=== PATIENT | female | born 1950 | race Caucasian/White ===

== ENCOUNTER → 2019-04-27 15:06 | Outpatient (CLI) | payer OTHER, MEDICARE, SELFPAY | PROVIDERS: PCP Student in an Organized Health Care Education/Training Program; Visit Provider Student in an Organized Health Care Education/Training Program | DX: N95.8 Other specified menopausal and perimenopausal disorders (principal) | CPT/HCPCS: 77080 ==

== ENCOUNTER → 2020-11-08 15:46 | Outpatient (CLI) | payer MEDICARE, SELFPAY ==
[2020-11-08] MEDS: COVID-19 VACC, Ad26(JANSSEN)/PF 0.5 ML IM (15:55)
== END ==
PROVIDERS: PCP Student in an Organized Health Care Education/Training Program; Visit Provider Internal Medicine
DX: Z23 Encounter for immunization (principal)
CPT/HCPCS: 0031A; 91303

== ENCOUNTER → 2022-08-28 07:52 | Outpatient (CLI) | payer MEDICARE, OTHER, SELFPAY | PROVIDERS: PCP Student in an Organized Health Care Education/Training Program; Referring Provider Ophthalmology; Visit Provider Ophthalmology | DX: H16.102 Unspecified superficial keratitis, left eye (principal) | CPT/HCPCS: 87255 ==

== ENCOUNTER → 2022-12-25 11:18 | Outpatient (CLI) | payer MEDICARE, OTHER, SELFPAY ==
--- NOTE | 2022-12-25 11:22 | DI.RAD.S_ITS ---
PROCEDURE: XR LUMBAR SPINE 2-3V INDICATIONS: CHRONIC RT SIDE LOW BACK PAIN/RT SIDE SCIATICA TECHNIQUE: 3 views of the lumbar spine were acquired. COMPARISON: None. FINDINGS: Bones: 5 [id number] vertebrae are present. Anterolisthesis of L4 on L5 measuring 0.6 cm. Retrolisthesis of L3 on L4 measuring at 0.8 cm. Retrolisthesis of L2 on L3 measuring 0.6 cm. Minimal height loss at L5. Small vertebral body osteophytes. Endplate sclerosis. No suspicious bony lesions. Soft tissues: Overlying bowel gas pattern is normal. No suspicious soft tissue calcifications. IMPRESSION: Multilevel spondylolisthesis. [id number] degenerative change. Dictated by: Josef Campos M.D. on 12/25/2022 at 14:39 Approved by: Josef Campos M.D. on 12/25/2022 at 14:41
== END ==
PROVIDERS: PCP Student in an Organized Health Care Education/Training Program; Referring Provider Student in an Organized Health Care Education/Training Program; Visit Provider Student in an Organized Health Care Education/Training Program
DX: M47.816 Spondylosis without myelopathy or radiculopathy, lumbar region (principal); M43.16 Spondylolisthesis, lumbar region; M54.41 Lumbago with sciatica, right side; G89.29 Other chronic pain
CPT/HCPCS: 72100

== ENCOUNTER → 2024-07-06 14:40 | Outpatient (CLI) | payer MEDICARE, OTHER, SELFPAY ==
--- NOTE | 2024-07-06 | DI.RAD.S_ITS ---
PROCEDURE: XR KNEE LT 1TO2V INDICATIONS: FAMILY HX OF OSTEOPOROSIS/xray knees TECHNIQUE: 3 views of the knee were acquired. COMPARISON: [facility], , KNEE 3V RIGHT, 03/27/2017, 13:46. FINDINGS: Bones: The tibial tuberosity is mildly enlarged which could indicate old Charles-Schlatter's disease. Joints: There is mild degenerative change patellofemoral tibiofemoral joints.. Soft tissues: Scattered small soft tissue nodules are seen in the pretibial subcutaneous region as previously seen. Presume there skin lesions. IMPRESSION: Norm mild degeneration. Probable old Charles-Schlatter's disease. Suspect benign subcutaneous skin lesions in the pretibial area no change from 2016 Dictated by: Bobby Lynn M.D. on 07/07/2024 at 10:13 Approved by: Bobby Lynn M.D. on 07/07/2024 at 10:14
--- NOTE | 2024-07-06 | DI.RAD.S_ITS ---
PROCEDURE: XR KNEE RT 1TO2V INDICATIONS: FAMILY HX OF OSTEOPOROSIS/xray knees TECHNIQUE: 3 views of the knee were acquired. COMPARISON: [facility], , KNEE 3V RIGHT, 03/27/2017, 13:46. FINDINGS: Bones: There are no osseous abnormalities. Patella Desiree noted. Joints: Moderate patellofemoral and medial tibial femoral degenerative change appreciated. Soft tissues: There is mild calcification of the patellar tendon insertion on the tibial tuberosity likely related to old trauma or inflammation. IMPRESSION: Degeneration. . Dictated by: Bobby Lynn M.D. on 07/07/2024 at 10:16 Approved by: Bobby Lynn M.D. on 07/07/2024 at 10:17
--- NOTE | 2024-07-06 14:48 | DI.RAD.S_ITS ---
PROCEDURE: XR DEXA AXIAL SKELETON INDICATIONS: FAMILY HX OF OSTEOPOROSIS/xray knees COMPARISON: [facility], , XR DEXA AXIAL SKELETON, 04/27/2019, 15:32. FINDINGS: Lumbar Spine: Bone mineral density 1.061 g/cm2, T score 0.1, compared to -0.1. Left Hip: Bone mineral density 0.598 g/cm2, T score 0.1, compared to 0.6. Left Femoral Neck: Bone mineral density 0.817 g/cm2, T score -0.3, compared to -0.7. Right Hip: Bone mineral density 0.927 g/cm2, T score -0.1, compared to 0.9. Right Femoral Neck: Bone mineral density 0.785 g/cm2, T score -0.6, compared to -0.9. Fracture Risk Calculation (when applicable): 10-year fracture risk of a major osteoporotic fracture 7.9% and of a hip fracture 0.7%. (T score greater or equal to -1.0 to: NORMAL) (T score from -1.1 to -2.4: OSTEOPENIA) (T score less than or equal to -2.5: OSTEOPOROSIS) IMPRESSION: Normal bone mineral density. Follow-up guidelines as follows: Osteoporosis: Consider a repeat DEXA and Vertebral Fracture Assessment (VFA) exam in 2 years or sooner if medically necessary, to reassess this patient's status. Osteopenia: Consider a repeat DEXA in 2-3 years to reassess this patient's status, or if there is a new clinical indication. Normal: Consider a repeat DEXA in 5 years or sooner, or if there is a new clinical indication. All treatment decisions require clinical judgment and consideration of individual patient factors, including patient preferences, comorbidities, previous drug use, risk factors not captured in the FRAX model (e.g., frailty, falls, vitamin D deficiency, increased bone turnover, interval significant decline in bone density ) and possible under- or over-estimation of fracture risk by FRAX. In addition, the NOF Guide recommends that FDA-approved medical therapies be considered in postmenopausal women and men age >= 50 years with a: * Hip or vertebral (clinical or morphometric) fracture * T-score of <=-2.5 at the spine or hip * Ten-year fracture probability by FRAX of >= 3% for hip fracture or >=20% for major osteoporotic fracture. People with diagnosed cases of osteoporosis or at high risk for fracture should have regular bone mineral density tests. For patients eligible for Medicare, routine testing is allowed once every 2 years. The testing frequency can be increased to one year for patients who have rapidly progressing disease, those who are receiving or discontinuing medical therapy to restore bone mass, or have additional risk factors. Dictated by: Jennifer Fall M.D. on 07/07/2024 at 16:35 Approved by: Jennifer Fall M.D. on 07/07/2024 at 16:51
== END ==
PROVIDERS: PCP Student in an Organized Health Care Education/Training Program; Referring Provider Nurse Practitioner Family; Visit Provider Nurse Practitioner Family
DX: M25.561 Pain in right knee; M25.562 Pain in left knee; Z82.62 Family history of osteoporosis; Z78.0 Asymptomatic menopausal state
CPT/HCPCS: 73560; 77080